=== PATIENT | male | born 1950 | race Caucasian/White ===

== ENCOUNTER 2017-03-19 12:11 | Emergency (ER) | payer OTHER ==
--- NOTE | 2017-03-19 12:26 | EDPHY ---
H & P Time Seen by Provider: 03/19/17 12:17 HPI/ROS: CHIEF COMPLAINT: Fall, left shoulder pain HISTORY OF PRESENT ILLNESS: Patient is a 66-year-old male who presents to the emergency department as a limited trauma activation via EMS. Patient was on a 5 -6 foot ladder when he fell back. He landed on his left shoulder and struck his head. He did not lose consciousness. He denies headache. No nausea or vomiting. He has mild neck pain. At baseline he has some mild numbness in his hands. This is prior to the injury. He has no new numbness or weakness. He complains of mild thoracic pain and "tailbone" pain. Patient has no shortness of breath or chest pain. Denies abdominal pain. REVIEW OF SYSTEMS: My complete review of systems is negative except as mentioned in the HPI. Past Medical/Surgical History: Negative Past surgical history: Negative Smoking Status: Former smoker Physical Exam: Vitals noted GENERAL: Well-appearing, in no acute distress, alert. C-collar in place HEAD: No evidence of trauma. EYES: PERRLA, EOMI, normal to inspection. ENT: Airway intact, no dental or oral injury, no malocclusion, no hemotympanum , normal external examination. NECK: The trachea is midline. There is no crepitus. Patient has mild midline cervical tenderness to palpation with no deformity. RESPIRATORY: Clear to auscultation bilaterally, no rales, rhonchi or wheezing. There is no crepitus or palpable rib fractures. CVS: Regular rate and rhythm, no rubs, murmurs, or gallops. ABDOMEN: Soft, nontender, nondistended, normal bowel sounds, no bruising or abrasions. Pelvis: Stable. No tenderness palpation. Hips full range of motion. GENITAL/RECTAL: Normal external exam. BACK: Normal to inspection, no spinal tenderness, no spinal step off, no notable bruising or abrasions. SKIN: Normal color, warm, dry. No pallor or diaphoresis. EXTREMITIES: Right upper extremity: Atraumatic. No visible signs of trauma. No tenderness palpation. Neurovascular intact distally. Left upper extremity: Patient has tenderness to palpation over his deltoid muscle and proximal humerus. There is no palpable deformity. This scapula and clavicle have no tenderness and are stable. Patient's distal humerus, elbow, forearm, wrist and hand are atraumatic. Right lower extremity: Atraumatic. No visible signs of trauma. No tenderness palpation. Neurovascular intact distally. Left lower extremity: Atraumatic. No visible signs of trauma. No tenderness palpation. Neurovascular intact distally. Atraumatic, neurovascularly intact distally in all extremities, pelvis is stable , hips with full range of motion, moves all extremities freely. NEURO/PSYCH: Alert and oriented x 3, GCS 15, normal mood and affect, normal motor sensory exam. Constitutional: Initial Vital Signs Temperature (C) 37 C 03/19/17 12:15 Heart Rate 67 03/19/17 12:15 Respiratory Rate 18 03/19/17 12:15 Blood Pressure 179/106 H 03/19/17 12:15 O2 Sat (%) 95 03/19/17 12:15 O2 Delivery Mode Room Air Allergies/Adverse Reactions: No Known Allergies Allergy (Verified 10/28/14 15:29) Home Medications: Medication Instructions Recorded B P Med 10/28/14 FLUoxetine [Prozac] 10 mg PO DAILY 10/28/14 LORazepam [Ativan] 1 mg PO 10/28/14 oxyCODONE/APAP 5/325 [Percocet 1 tab PO Q4 #20 tab 10/28/14 5/325] D5w 03/19/17 Doxazosin Mesylate 03/19/17 Ondansetron Odt [Zofran Odt 4 mg 4 mg PO Q4PRN PRN #7 tab 03/19/17 (*)] oxyCODONE/APAP 5/325 [Percocet 1 - 2 tab PO Q4PRN PRN #11 tab 03/19/17 5/325 (*)] Medical Decision Making - Diagnostics Imaging Results: Imaging Impressions Head CT 03/19/17 12:20 Impression: 1. No significant intracranial abnormality seen. 2. Mild degenerative disk disease at C5-C6 and at C6-C7. Otherwise, normal CT cervical spine. Findings discussed with Joanne Douglas M.D. at 12:52 hour, 03/19/2017. Cervical Spine CT 03/19/17 12:21 Impression: 1. No significant intracranial abnormality seen. 2. Mild degenerative disk disease at C5-C6 and at C6-C7. Otherwise, normal CT cervical spine. Findings discussed with Joanne Douglas M.D. at 12:52 hour, 03/19/2017. Pelvis CT 03/19/17 12:21 Impression: 1. No acute abnormality seen about the pelvis. 2. Moderate disk bulge at L4-L5 along with ligamentum flavum hypertrophy contributes to moderate to severe spinal stenosis. Findings discussed with Joanne Douglas M.D. at 1255 hour, 03/19/2017. Thoracic Spine CT 03/19/17 12:21 Impression: 1. No acute fractures seen associated with the thoracic spine with mild degenerative disk disease mid thoracic spine. 2. Complex fracture inferior left scapula below the scapular spine level without involvement of the shoulder joint or AC joint. 3. Nondisplaced fracture posterior left 10th rib. Findings discussed with Joanne Douglas M.D. at 1255 hour, 03/19/2017. Scapula X-Ray 03/19/17 13:55 Impression: Scapular wing fractures. ED Course/Re-evaluation: In the emergency department I met the patient on arrival. I took report from the plastics nurse. I discussed the plan with the patient answered all his questions. Of note, the patient received fentanyl 100 mcg IV from EMS. Head CT , C-spine CT, thoracic spine CT, pelvic CT were ordered. When the patient returned to the emergency department he was continued to have left shoulder pain. He is given fentanyl [address] head: Please refer the dictated report by Dr. Peñaloza. No acute disease noted. CT neck: Please refer the dictated report by Dr. Peñaloza. No acute disease noted. CT thoracic spine: No spinal fracture. Dr. Peñaloza did visualize the left shoulder. There appears to be an inferior scapular fracture. The joint otherwise appears normal. He did not feel the patient needs an x-ray of his left shoulder as he can visualize it well on the CT scan. Patient was also noted to have a posterior tense left rib fracture. CT pelvis: Please refer the dictated report by Dr. Peñaloza. No acute disease noted. CBC chemistry were unremarkable. Alcohol negative. I discussed the results with the patient. Answered all his questions. I discussed the case with Dr. Fletcher from Orthopedic surgery. He recommended plain films of the scapula. I discussed this with the patient. The limited trauma activation was downgraded. 1505: The patient is feeling better. Sling is in place for comfort. He is neurovascularly intact distally. He is given warnings prior to leaving. He will return with worsening symptoms. Differential Diagnosis: My differential includes but is not limited to subarachnoid hemorrhage, subdural hematoma, epidural hematoma, spinal injury, disc herniation, rib fracture, pneumothorax, hemothorax, humerus fracture, pelvic fracture - Data Points Laboratory Results: Laboratory Results 03/19/17 12:20 03/19/17 12:20 03/19/17 03/19/17 03/19/17 12:20 12:20 12:20 WBC 8.74 10^3/uL 10^3/uL (3.80-9.50) RBC 4.92 10^6/uL 10^6/uL (4.40-6.38) Hgb 15.0 g/dL g/dL (13.7-17.5) Hct 42.8 % % (40.0-51.0) MCV 87.0 fL fL (81.5-99.8) MCH 30.5 pg pg (27.9-34.1) MCHC 35.0 g/dL g/dL (32.4-36.7) RDW 14.3 % % (11.5-15.2) Plt Count 167 10^3/uL 10^3/uL (150-400) MPV 11.6 fL fL (8.7-11.7) Neut % (Auto) 55.8 % % (39.3-74.2) Lymph % (Auto) 30.8 % % (15.0-45.0) Falls % (Auto) 10.8 % % (4.5-13.0) Eos % (Auto) 1.3 % % (0.6-7.6) Baso % (Auto) 0.3 % % (0.3-1.7) Nucleat RBC Rel Count 0.0 % % (0.0-0.2) Absolute Neuts (auto) 4.88 10^3/uL 10^3/uL (1.70-6.50) Absolute Lymphs (auto) 2.69 10^3/uL 10^3/uL (1.00-3.00) Absolute Monos (auto) 0.94 10^3/uL H 10^3/uL (0.30-0.80) Absolute Eos (auto) 0.11 10^3/uL 10^3/uL (0.03-0.40) Absolute Basos (auto) 0.03 10^3/uL 10^3/uL (0.02-0.10) Absolute Nucleated RBC 0.00 10^3/uL 10^3/uL (0-0.01) Immature Gran % 1.0 % % (0.0-1.1) Immature Gran # 0.09 10^3/uL 10^3/uL (0.00-0.10) PT 13.4 SEC SEC (12.0-15.0) INR 1.03 (0.83-1.16) APTT 24.6 SEC SEC (23.0-38.0) Sodium 137 mEq/L mEq/L (134-144) Potassium 4.0 mEq/L mEq/L (3.5-5.2) Chloride 102 mEq/L mEq/L (97-110) Carbon Dioxide 22 mEq/l mEq/l (22-31) Anion Gap 13 mEq/L mEq/L (8-16) BUN 25 mg/dL H mg/dL (7-23) Creatinine 1.1 mg/dL mg/dL (0.7-1.3) Estimated GFR > 60 Glucose 87 mg/dL mg/dL (70-100) Calcium 9.5 mg/dL mg/dL (8.5-10.4) Ethyl Alcohol < 10 mg/dL mg/dL (0-10) Medications Given: Discontinued Medications Fentanyl (Sublimaze) 100 mcg IVP EDNOW ONE Stop: 03/19/17 13:58 Last Admin: 03/19/17 13:15 Dose: 100 mcg Departure - Departure Disposition: Home, Routine, Self-Care Clinical Impression: Scapular fracture Qualifiers: Encounter type: initial encounter Scapula location: body Fracture type: closed Fracture alignment: nondisplaced Laterality: left Qualified Code(s): S42.115A - Nondisplaced fracture of body of scapula, left shoulder, initial encounter for closed fracture Fracture, rib Qualifiers: Encounter type: initial encounter Rib fracture type: single rib Fracture type: closed Laterality: left Qualified Code(s): S22.32XA - Fracture of one rib, left side, initial encounter for closed fracture Condition: Good Instructions: Scapular Fracture (ED) Additional Instructions: Return with increasing pain, weakness, numbness, shortness of breath or any other concerns. Referrals: Abilio Fletcher MD [Medical Doctor] - 5-7 days, call for appt. Prescriptions: Ondansetron Odt [Zofran Odt 4 mg (*)] 4 mg PO Q4PRN PRN #7 tab PRN Reason: For Nausea & Vomiting oxyCODONE/APAP 5/325 [Percocet 5/325 (*)] 1 - 2 tab PO Q4PRN PRN #11 tab PRN Reason: For Moderate To Severe Pain
[2017-03-19 12:28] LABS: ABSOLUTE IMMATURE GRANULOCYTES 0.09 10^3/uL (0.00-0.10); ADD DIFF? NO; ADD MORPH? NO; ADD SCAN? NO; ATYPICAL LYMPHOCYTE FLAG 10 (0-99); FRAGMENT RBC FLAG 0 (0-99); HEMATOCRIT 42.8 % (40.0-51.0); LEFT SHIFT FLG 0 (0-99); LIPEMIA HEMOLYSIS FLAG 90 (0-99); MEAN CELL HEMOGLOBIN 30.5 pg (27.9-34.1); MEAN PLATELET VOLUME 11.6 fL (8.7-11.7); PLATELET CLUMPS FLAG 20 (0-99); PLATELET COUNT 167 10^3/uL (150-400); RED BLOOD CELL COUNT 4.92 10^6/uL (4.40-6.38); RED CELL DISTRIBUTION WIDTH 14.3 % (11.5-15.2)
[2017-03-19 12:43] LABS: ANION GAP 13 mEq/L (8-16); CALCIUM 9.5 mg/dL (8.5-10.4); CARBON DIOXIDE 22 mEq/l (22-31); CHLORIDE 102 mEq/L (97-110); CREATININE 1.1 mg/dL (0.7-1.3); ETHANOL SERUM < 10 mg/dL (0-10); GLOMERULAR FILTRATION RATE > 60; GLUCOSE 87 mg/dL (70-100); SODIUM 137 mEq/L (134-144)
[2017-03-19] MEDS ORDERED: fentaNYL 100 MCG/2 ML INJ ONE (12:44)
[2017-03-19 12:48] LABS: INR 1.03 (0.83-1.16); PROTIME(PATIENT) 13.4 SEC (12.0-15.0)
[2017-03-19 12:49] LABS: APTT 24.6 SEC (23.0-38.0)
[2017-03-19 12:55] VITALS: RESP 18; TEMP 98.6
[2017-03-19] MEDS ORDERED: fentaNYL 100 MCG/2 ML INJ IVP ONE (13:57)
[2017-03-19] MEDS ORDERED: OXYCODONE/APAP 5/325 TAB ONE (13:59)
[2017-03-19] MEDS ORDERED: ONDANSETRON 4 MG/2 ML VIAL ONE (13:59)
[2017-03-19] MEDS ORDERED: HYDROmorphONE/DILAUDID 1 MG/ML SYR ONE (13:59)
[2017-03-19 15:36] VITALS: BP 136/78; PULSE 66; O2SAT 96
== END 2017-03-19 15:33 | disposition home or self-care (01) ==
LOC: EDUNIT#
DX: S42.115A Nondisplaced fracture of body of scapula, left shoulder, initial encounter for closed fracture (principal); S22.32XA Fracture of one rib, left side, initial encounter for closed fracture; Z87.891 Personal history of nicotine dependence; W11.XXXA Fall on and from ladder, initial encounter
CPT/HCPCS: 70450; 72125; 72128; 72192; 73010; 96374; 99285; A4565; J1170; J2405; J3010; G0390; G0480

== ENCOUNTER → 2017-09-01 | Outpatient (CLI) | payer OTHER | LOC: FIMAGING 12:42 | PROVIDERS: ATTEND Family Medicine | DX: M25.552 Pain in left hip (principal) ==

== ENCOUNTER → 2019-04-07 | Outpatient (CLI) | payer OTHER | LOC: FIMAGING 09:19 ==